=== PATIENT | male | born 1985 | race Caucasian/White ===

== ENCOUNTER 2024-10-04 18:10 | Emergency (ER) | payer MEDICAID ==
[~2024-10-04] VITALS: Ht 175.3 cm; Wt 86.1 kg
[2024-10-04 18:13] VITALS: O2SAT 99
[2024-10-04] MEDS ORDERED: IBUPROFEN 600MG TABLET PO ONE (20:15)
[2024-10-04] MEDS: IBUPROFEN 600MG TABLET PO NR (22:10)
[2024-10-04] MEDS ORDERED: ALLO100T MT (22:56)
[2024-10-04] MEDS ORDERED: IBUP-2029 MT (22:56)
[2024-10-04] MEDS ORDERED: PRED5TAB48 MT (22:57)
[2024-10-04 23:22] VITALS: BP 133/80; PULSE 81; RESP 16; TEMP 36.8; O2SAT 99
== END 2024-10-05 00:07 | disposition home or self-care (01) ==
LOC: ER 18:10
DX: M79.672 Pain in left foot (principal); M10.9 Gout, unspecified; Z79.899 Other long term (current) drug therapy; Z98.890 Other specified postprocedural states
CPT/HCPCS: 73630; 99283